=== PATIENT | female | born 1935 | race Caucasian/White ===

== ENCOUNTER 2017-02-06 13:51 | Inpatient (IN) | payer OTHER, BC ==
[~2017-02-06] VITALS: Ht 152.4 cm; Wt 68.4 kg
[~2017-02-06 13:51] MED LIST: ALKA-SELTZER H1 EACH PO; AMLODIPINE BESYL5 MG PO; AMOX TR-K CLV1 EAC4 PO; ASPIR 8181 M1 PO; ATENOLOL50 MG PO; BUSPAR10 MG PO; CALCITRATE + D1 EACH PO; CITRACAL PLUS1 EAC1 PO; COLACE CLEAR50 MG PO; FERROUS SULFAT325 MG PO; LORAZEPAM0.5 MG PO; MILK OF MAGN PO; PRAVACHOL40 MG PO; PRENATAL TABLE1 EAC3 PO; PROVENTIL,2.5 MG/3 M IH; ROBITUSSIN100 MG/5 M PO; SENNA LAX8.6 MG PO; TYLENOL EXTRA500 MG PO; WARFARIN SODIU2.5 MG PO; WARFARIN SODIUM2 MG PO; WARFARIN SODIUM4 MG PO; ZOLOFT100 MG PO
[2017-02-06 15:36] LABS: BASE EXCESS -1.5 mEq/L (-3 to +3); BICARBONATE 22.9 mEq/L (22-26); CARBOXY HGB 2.3 % (0-5); PCO2 37 mm Hg (35-45); PO2 81 mm Hg (80-100)
[2017-02-06 15:37] LABS: COMMENTS - BLOOD GASES A+C=; DEVICE NC; O2 FLOW 3 L/MIN; SITE RR; TOTAL RESP RATE 30 resp/min
[2017-02-06 16:45] LABS: INTER. NORMALIZED RATIO 3.1
[2017-02-06 16:48] LABS: PTT 40.4 SEC (25-37)
[2017-02-06 16:59] LABS: BASOPHIL (%) 0.3 % (0-1); EOSINOPHIL (%) 1.1 % (0-5); EOSINOPHIL COUNT 0.1 K/uL (0-0.3); HEMATOCRIT 39.8 % (36.0-46.0); HEMOGLOBIN 13.2 G/DL (11.9-15.5); IMMATURE GRANULOCYTE (%) 0.5 % (0.0-0.7); LYMPHOCYTE (%) 14.2 % (15-42); LYMPHOCYTE COUNT 1.6 K/uL (1.0-2.8); MCH 32.3 PG (29.0-34.0); MCHC 33.2 G/DL (30.0-36.0); MCV 97.3 FL (83-99); MONOCYTE (%) 3.2 % (3-12); MONOCYTE COUNT 0.4 K/uL (0-0.8); NEUTROPHIL (%) 80.7 % (45-76); NEUTROPHIL COUNT 8.9 K/uL (1.8-6.4); PLATELET COUNT 130 K/uL (156-360); RBC DIS.WIDTH-CV 15.2 % (11.8-14.6); RBC DIS.WIDTH-SD 54.6 % (39-53); RED BLOOD COUNT 4.09 M/uL (3.80-5.20)
[2017-02-06] MEDS ORDERED: SIMETHICONE80 MG PO (17:09)
[2017-02-06 17:10] LABS: ALBUMIN 3.8 g/dL (3.2-4.8); CHLORIDE 107 mEq/L (99-109); POTASSIUM 4.1 mEq/L (3.7-5.4); SODIUM 139 mEq/L (136-147)
[2017-02-06 17:12] LABS: GLUCOSE 164 mg/dL (70-99); TOTAL PROTEIN 8.1 g/dL (6.4-8.3)
[2017-02-06] MEDS ORDERED: VITAMIN D2000 UNIT PO (17:13)
[2017-02-06 17:14] LABS: TOTAL BILIRUBIN 0.8 mg/dL (0.0-1.0)
[2017-02-06 17:16] LABS: ALKALINE PHOSPHATASE 66 IU/L (3-129); CREATININE 1.2 mg/dL (0.6-1.3); GFR ESTIMATE (CALCULATED) 46 mL/min/
[2017-02-06 17:17] LABS: AST (GOT) 85 IU/L (2-34); DIRECT BILIRUBIN 0.4 mg/dL (0.0-0.3); UREA NITROGEN (BUN) 23 mg/dL (9-23)
[2017-02-06 17:19] LABS: ALT (GPT) 67 IU/L (3-49); LIPASE 18 U/L (1.0-51.0); TROP-I INTERPRETATION NEGATIVE; TROPONIN-I 0.01 ng/mL (0.0-0.30)
[2017-02-06] MEDS ORDERED: TYLENOL EXTRA500 MG PO (17:23)
[2017-02-06 22:43] VITALS: BP 109/57
[2017-02-07 02:59] VITALS: BP 109/75
[2017-02-07 06:43] LABS: HEMATOCRIT 34.8 % (36.0-46.0); MCH 31.3 PG (29.0-34.0); MCHC 31.6 G/DL (30.0-36.0); MCV 99.1 FL (83-99); PLATELET COUNT 94 K/uL (156-360); RBC DIS.WIDTH-CV 15.3 % (11.8-14.6); RBC DIS.WIDTH-SD 56.5 % (39-53); RED BLOOD COUNT 3.51 M/uL (3.80-5.20); WHITE BLOOD COUNT 8.4 K/uL (4.1-10.2)
[2017-02-07 06:57] LABS: CHLORIDE 110 MEQ/L (99-109); CREATININE 1.3 MG/DL (0.6-1.3); GFR ESTIMATE (CALCULATED) 42 mL/min/; GLUCOSE 201 mg/dL (70-99); POTASSIUM 3.9 MEQ/L (3.7-5.4); SODIUM 141 MEQ/L (136-147); UREA NITROGEN (BUN) 27 mg/dL (9-23)
[2017-02-07 07:44] VITALS: BP 132/62
[2017-02-07 11:49] VITALS: BP 108/53
[2017-02-07 12:11] LABS: INTER. NORMALIZED RATIO 2.9
[2017-02-07 15:24] VITALS: BP 109/55
[2017-02-07 19:19] VITALS: BP 100/57
[2017-02-08] VITALS (7 sets, daily range): BP systolic 101–166; BP diastolic 55–87
[2017-02-08 07:01] LABS: INTER. NORMALIZED RATIO 3.8
[2017-02-09 06:20] LABS: BASOPHIL (%) 0.2 % (0-1); EOSINOPHIL (%) 0 % (0-5); HEMOGLOBIN 11.1 G/DL (11.9-15.5); IMMATURE GRANULOCYTE (%) 0.9 % (0.0-0.7); LYMPHOCYTE (%) 13.1 % (15-42); LYMPHOCYTE COUNT 1.7 K/uL (1.0-2.8); MCH 31.8 PG (29.0-34.0); MCHC 31.7 G/DL (30.0-36.0); MCV 100.3 FL (83-99); MONOCYTE (%) 4.1 % (3-12); MONOCYTE COUNT 0.5 K/uL (0-0.8); NEUTROPHIL (%) 81.7 % (45-76); NEUTROPHIL COUNT 10.4 K/uL (1.8-6.4); RBC DIS.WIDTH-CV 15.9 % (11.8-14.6); RBC DIS.WIDTH-SD 58.5 % (39-53); RED BLOOD COUNT 3.49 M/uL (3.80-5.20); WHITE BLOOD COUNT 12.8 K/uL (4.1-10.2)
[2017-02-09 06:28] LABS: PLATELET COUNT 125 K/uL (156-360)
[2017-02-09 06:56] LABS: INTER. NORMALIZED RATIO 4.8
[2017-02-09 07:15] VITALS: BP 126/95
[2017-02-09 07:41] LABS: ALBUMIN 3.2 G/DL (3.2-4.8); ALKALINE PHOSPHATASE 37 IU/L (3-129); ALT (GPT) 65 IU/L (3-49); AST (GOT) 64 IU/L (2-34); CHLORIDE 114 MEQ/L (99-109); CREATININE 1.3 MG/DL (0.6-1.3); GFR ESTIMATE (CALCULATED) 42 mL/min/; GLUCOSE 115 mg/dL (70-99); POTASSIUM 3.1 MEQ/L (3.7-5.4); SODIUM 147 MEQ/L (136-147); TOTAL BILIRUBIN 0.6 MG/DL (0.0-1.0); TOTAL PROTEIN 6.2 G/DL (6.4-8.3); UREA NITROGEN (BUN) 35 mg/dL (9-23)
[2017-02-09 08:28] VITALS: BP 128/82
[2017-02-09 11:14] VITALS: BP 114/62
[2017-02-09 16:08] VITALS: BP 145/82
[2017-02-09 19:38] VITALS: BP 130/84
[2017-02-09 23:54] VITALS: BP 174/82
[2017-02-10 03:29] VITALS: BP 142/84
[2017-02-10 07:54] LABS: ALBUMIN 3.4 G/DL (3.2-4.8); ALKALINE PHOSPHATASE 41 IU/L (3-129); ALT (GPT) 77 IU/L (3-49); AST (GOT) 87 IU/L (2-34); CHLORIDE 118 MEQ/L (99-109); CREATININE 1.2 MG/DL (0.6-1.3); GFR ESTIMATE (CALCULATED) 46 mL/min/; POTASSIUM 3.1 MEQ/L (3.7-5.4); SODIUM 148 MEQ/L (136-147); TOTAL BILIRUBIN 0.6 MG/DL (0.0-1.0); TOTAL PROTEIN 6.1 G/DL (6.4-8.3); UREA NITROGEN (BUN) 32 mg/dL (9-23)
[2017-02-10 07:58] LABS: GLUCOSE 82 mg/dL (70-99)
[2017-02-10 07:59] LABS: C DIFF TOXIN NEGATIVE (NEGATIVE)
[2017-02-10 08:00] VITALS: BP 139/81
[2017-02-10 08:10] LABS: INTER. NORMALIZED RATIO 5.8
[2017-02-10 08:23] LABS: BASOPHIL (%) 0.2 % (0-1); EOSINOPHIL (%) 0.2 % (0-5); HEMATOCRIT 34.9 % (36.0-46.0); HEMOGLOBIN 11.4 G/DL (11.9-15.5); IMMATURE GRANULOCYTE (%) 1.1 % (0.0-0.7); LYMPHOCYTE (%) 24.1 % (15-42); LYMPHOCYTE COUNT 2.9 K/uL (1.0-2.8); MCH 32.7 PG (29.0-34.0); MCHC 32.7 G/DL (30.0-36.0); MONOCYTE (%) 4.7 % (3-12); MONOCYTE COUNT 0.6 K/uL (0-0.8); NEUTROPHIL (%) 69.7 % (45-76); NEUTROPHIL COUNT 8.3 K/uL (1.8-6.4); NRBC (%) 0.3 /100 WBC (0-0); PLATELET COUNT 121 K/uL (156-360); RBC DIS.WIDTH-SD 58.9 % (39-53); RED BLOOD COUNT 3.49 M/uL (3.80-5.20); WHITE BLOOD COUNT 11.9 K/uL (4.1-10.2)
[2017-02-10 09:51] LABS: RETIC HGB EQUIVALENT 32.5 (28-36); RETICULOCYTE COUNT 1.8 % (0.5-1.8)
[2017-02-10 10:54] LABS: IRON 65 MCG/DL (35-150); MAGNESIUM 1.9 mg/dl (1.3-2.7); TRANSFERRIN (TIBC) 169.9 mg/dL (215-380); TRANSFERRIN SATUR. 38 % (20-55)
[2017-02-10 11:11] LABS: FERRITIN 348 NG/ML (10-291)
[2017-02-10 11:20] LABS: FOLIC ACID (FOLATE) > 22.0 NG/ML (5.0-22.0)
[2017-02-10 12:00] VITALS: BP 136/89
[2017-02-10 16:00] VITALS: BP 178/77
[2017-02-10 19:17] LABS: COLOR YELLOW ((YELLOW))
[2017-02-10 19:18] LABS: APPEARANCE SL.HAZY ((CLEAR)); BILIRUBIN NEGATIVE; BLOOD LARGE; GLUCOSE (STRIP) NEGATIVE; KETONES NEGATIVE; LEUKOCYTES MODERATE; NITRITE NEGATIVE; PROTEIN (STRIP) 100; UROBILINOGEN 0.2 MG/DL (0.2-1.0)
[2017-02-10 19:54] LABS: EPITHELIAL CELLS NONE SEEN /HPF; MUCUS NONE SEEN /LPF
[2017-02-10 19:56] LABS: BACTERIA NONE SEEN /HPF; RED BLOOD CELLS TNTC /HPF (0-5); UCUL ADDED? YES
[2017-02-10 20:28] VITALS: BP 166/90
[2017-02-10 23:39] VITALS: BP 156/90
[2017-02-11 03:55] VITALS: BP 165/85
[2017-02-11 05:19] LABS: BASOPHIL (%) 0.1 % (0-1); EOSINOPHIL (%) 0.2 % (0-5); HEMATOCRIT 32.9 % (36.0-46.0); HEMOGLOBIN 10.5 G/DL (11.9-15.5); IMMATURE GRANULOCYTE (%) 1.8 % (0.0-0.7); LYMPHOCYTE (%) 17.9 % (15-42); LYMPHOCYTE COUNT 1.9 K/uL (1.0-2.8); MCH 31.4 PG (29.0-34.0); MCHC 31.9 G/DL (30.0-36.0); MCV 98.5 FL (83-99); MONOCYTE (%) 3.2 % (3-12); MONOCYTE COUNT 0.3 K/uL (0-0.8); NEUTROPHIL (%) 76.8 % (45-76); NEUTROPHIL COUNT 8.3 K/uL (1.8-6.4); NRBC (%) 0.3 /100 WBC (0-0); PLATELET COUNT 121 K/uL (156-360); RBC DIS.WIDTH-CV 15.6 % (11.8-14.6); RBC DIS.WIDTH-SD 56.7 % (39-53); RED BLOOD COUNT 3.34 M/uL (3.80-5.20); WHITE BLOOD COUNT 10.7 K/uL (4.1-10.2)
[2017-02-11 05:54] LABS: ALBUMIN 3.4 G/DL (3.2-4.8); ALKALINE PHOSPHATASE 41 IU/L (3-129); ALT (GPT) 99 IU/L (3-49); AST (GOT) 83 IU/L (2-34); CHLORIDE 113 MEQ/L (99-109); CREATININE 1.1 MG/DL (0.6-1.3); GFR ESTIMATE (CALCULATED) 50 mL/min/; GLUCOSE 125 mg/dL (70-99); POTASSIUM 3.8 MEQ/L (3.7-5.4); SODIUM 141 MEQ/L (136-147); TOTAL BILIRUBIN 0.5 MG/DL (0.0-1.0); TOTAL PROTEIN 6.3 G/DL (6.4-8.3); UREA NITROGEN (BUN) 23 mg/dL (9-23)
[2017-02-11 08:00] VITALS: BP 168/78
[2017-02-11 11:30] VITALS: BP 162/48
[2017-02-11 15:06] LABS: INTER. NORMALIZED RATIO 4.7
[2017-02-11 16:00] VITALS: BP 148/82
[2017-02-11 20:07] VITALS: BP 122/72
[2017-02-11 23:57] VITALS: BP 112/64
[2017-02-12 03:52] VITALS: BP 128/64
[2017-02-12 05:31] LABS: BASOPHIL (%) 0.2 % (0-1); EOSINOPHIL (%) 3.1 % (0-5); EOSINOPHIL COUNT 0.4 K/uL (0-0.3); HEMATOCRIT 31.7 % (36.0-46.0); HEMOGLOBIN 10.4 G/DL (11.9-15.5); IMMATURE GRANULOCYTE (%) 1.1 % (0.0-0.7); LYMPHOCYTE (%) 22.1 % (15-42); LYMPHOCYTE COUNT 3.1 K/uL (1.0-2.8); MCH 32.1 PG (29.0-34.0); MCHC 32.8 G/DL (30.0-36.0); MCV 97.8 FL (83-99); MONOCYTE (%) 3.8 % (3-12); MONOCYTE COUNT 0.5 K/uL (0-0.8); NEUTROPHIL (%) 69.7 % (45-76); NEUTROPHIL COUNT 9.7 K/uL (1.8-6.4); NRBC (%) 0.2 /100 WBC (0-0); PLATELET COUNT 122 K/uL (156-360); RBC DIS.WIDTH-CV 15.5 % (11.8-14.6); RBC DIS.WIDTH-SD 55.5 % (39-53); RED BLOOD COUNT 3.24 M/uL (3.80-5.20); WHITE BLOOD COUNT 13.8 K/uL (4.1-10.2)
[2017-02-12 06:14] LABS: ALBUMIN 3.3 G/DL (3.2-4.8); ALKALINE PHOSPHATASE 44 IU/L (3-129); ALT (GPT) 77 IU/L (3-49); AST (GOT) 44 IU/L (2-34); CHLORIDE 111 MEQ/L (99-109); CREATININE 0.9 MG/DL (0.6-1.3); GFR ESTIMATE (CALCULATED) > 59 mL/min/; GLUCOSE 101 mg/dL (70-99); POTASSIUM 3.4 MEQ/L (3.7-5.4); SODIUM 141 MEQ/L (136-147); TOTAL BILIRUBIN 0.6 MG/DL (0.0-1.0); TOTAL PROTEIN 6.1 G/DL (6.4-8.3); UREA NITROGEN (BUN) 19 mg/dL (9-23)
[2017-02-12 07:06] VITALS: BP 151/76
[2017-02-12 10:58] VITALS: BP 173/87
[2017-02-12 14:57] VITALS: BP 169/88
[2017-02-12 19:19] VITALS: BP 122/72
[2017-02-12 23:57] VITALS: BP 146/71
[2017-02-13 03:49] VITALS: BP 131/60
[2017-02-13 06:47] LABS: BASOPHIL (%) 0.1 % (0-1); EOSINOPHIL (%) 0 % (0-5); HEMOGLOBIN 10.3 G/DL (11.9-15.5); IMMATURE GRANULOCYTE (%) 1.9 % (0.0-0.7); LYMPHOCYTE (%) 7.7 % (15-42); LYMPHOCYTE COUNT 0.9 K/uL (1.0-2.8); MCH 31.9 PG (29.0-34.0); MCHC 32.2 G/DL (30.0-36.0); MCV 99.1 FL (83-99); MONOCYTE (%) 1.5 % (3-12); MONOCYTE COUNT 0.2 K/uL (0-0.8); NEUTROPHIL (%) 88.8 % (45-76); NEUTROPHIL COUNT 10.3 K/uL (1.8-6.4); NRBC (%) 0.2 /100 WBC (0-0); PLATELET COUNT 133 K/uL (156-360); RBC DIS.WIDTH-CV 15.8 % (11.8-14.6); RBC DIS.WIDTH-SD 56.6 % (39-53); RED BLOOD COUNT 3.23 M/uL (3.80-5.20); WHITE BLOOD COUNT 11.6 K/uL (4.1-10.2)
[2017-02-13 06:53] LABS: INTER. NORMALIZED RATIO 2.6
[2017-02-13 07:02] VITALS: BP 141/77
[2017-02-13 07:02] LABS: ALBUMIN 3.3 G/DL (3.2-4.8); ALKALINE PHOSPHATASE 47 IU/L (3-129); ALT (GPT) 70 IU/L (3-49); AST (GOT) 38 IU/L (2-34); CHLORIDE 111 MEQ/L (99-109); CREATININE 0.9 MG/DL (0.6-1.3); GFR ESTIMATE (CALCULATED) > 59 mL/min/; SODIUM 140 MEQ/L (136-147); TOTAL PROTEIN 6.3 G/DL (6.4-8.3); UREA NITROGEN (BUN) 19 mg/dL (9-23)
[2017-02-13 07:06] LABS: GLUCOSE 163 mg/dL (70-99); POTASSIUM 4.6 MEQ/L (3.7-5.4); TOTAL BILIRUBIN 0.8 MG/DL (0.0-1.0)
[2017-02-13] MEDS ORDERED: DUONEB 2.5-0.5 M3 ML AEROSOL (12:30)
[2017-02-13] MEDS ORDERED: DOXYCYCLINE HY100 M3 PO (12:30)
[2017-02-13] MEDS ORDERED: LOPRESSOR50 MG PO (12:31)
[2017-02-13] MEDS ORDERED: CARDIZEM CD120 M1 PO (12:32)
[2017-02-13] MEDS ORDERED: PREDNISONE10 MG PO (12:33)
[2017-02-13] MEDS ORDERED: ADVAIR HFA120 INHALA IH (12:33)
== END 2017-02-13 18:04 | DRG 193 ==
LOC: EME 13:51 → EDOF 20:58 → 5SOUTH 20:58 → 2EAST 20:58 → ENRESERV 21:02 → 2EAST 22:33 → ENRESERV 02-08 17:10 → 5SOUTH 02-08 18:11
PROVIDERS: Emergency Medicine; Hospitalist
DX: J15.9 Unspecified bacterial pneumonia (principal); J96.01 Acute respiratory failure with hypoxia; J45.909 Unspecified asthma, uncomplicated; I48.2 Chronic atrial fibrillation; I11.0 Hypertensive heart disease with heart failure; I50.9 Heart failure, unspecified; E87.0 Hyperosmolality and hypernatremia; E87.6 Hypokalemia; D69.6 Thrombocytopenia, unspecified; D64.9 Anemia, unspecified; I69.354 Hemiplegia and hemiparesis following cerebral infarction affecting left non-dominant side; I69.392 Facial weakness following cerebral infarction; I69.320 Aphasia following cerebral infarction; I69.321 Dysphasia following cerebral infarction; K58.0 Irritable bowel syndrome with diarrhea; K21.9 Gastro-esophageal reflux disease without esophagitis; M81.0 Age-related osteoporosis without current pathological fracture; I34.8 Other nonrheumatic mitral valve disorders; R79.1 Abnormal coagulation profile; E66.9 Obesity, unspecified; Z68.29 Body mass index [BMI] 29.0-29.9, adult; E78.00 Pure hypercholesterolemia, unspecified; G89.29 Other chronic pain; F32.9 Major depressive disorder, single episode, unspecified; F41.9 Anxiety disorder, unspecified; M19.90 Unspecified osteoarthritis, unspecified site; Y95 Nosocomial condition; Z95.2 Presence of prosthetic heart valve; Z87.440 Personal history of urinary (tract) infections; Z96.652 Presence of left artificial knee joint; Z79.82 Long term (current) use of aspirin; Z79.01 Long term (current) use of anticoagulants
CPT/HCPCS: 36600; 71010; 71045; 71046; 71250; 80048; 80053; 81003; 82248; 82607; 82728; 82746; 82803; 83540; 83605; 83690; 83735; 84466; 84484; 85025; 85027; 85046; 85610; 85730; 87040; 87086; 87493; 92610 GN; 93005; 94640; 94640 76; 94760; 94799; 99202; 99281; 99285; J0696; J2405; J2543; J2920; J2930; J3370; J7030; J7050; J7070; J7512

== ENCOUNTER 2017-02-22 05:33 | Emergency (ER) | payer OTHER ==
[~2017-02-22] VITALS: Ht 160 cm; Wt 73.6 kg
[~2017-02-22 05:33] MED LIST changes: +ADVAIR HFA120 INHALA IH; +CARDIZEM CD120 M1 PO; +DOXYCYCLINE HY100 M3 PO; +DUONEB 2.5-0.5 M3 ML AEROSOL; +LOPRESSOR50 MG PO; +PREDNISONE10 MG PO; +SIMETHICONE80 MG PO; +VITAMIN D2000 UNIT PO
[2017-02-22 08:23] LABS: BASOPHIL (%) 0.1 % (0-1); EOSINOPHIL (%) 1.2 % (0-5); EOSINOPHIL COUNT 0.2 K/uL (0-0.3); HEMATOCRIT 37.4 % (36.0-46.0); HEMOGLOBIN 12.1 G/DL (11.9-15.5); IMMATURE GRANULOCYTE (%) 0.9 % (0.0-0.7); LYMPHOCYTE (%) 17.2 % (15-42); LYMPHOCYTE COUNT 2.8 K/uL (1.0-2.8); MCH 32.4 PG (29.0-34.0); MCHC 32.4 G/DL (30.0-36.0); MCV 100.3 FL (83-99); MONOCYTE (%) 3.4 % (3-12); MONOCYTE COUNT 0.6 K/uL (0-0.8); NEUTROPHIL (%) 77.2 % (45-76); NEUTROPHIL COUNT 12.7 K/uL (1.8-6.4); PLATELET COUNT 160 K/uL (156-360); RBC DIS.WIDTH-SD 58.4 % (39-53); RED BLOOD COUNT 3.73 M/uL (3.80-5.20); WHITE BLOOD COUNT 16.5 K/uL (4.1-10.2)
[2017-02-22 08:28] LABS: INTER. NORMALIZED RATIO 2.9
[2017-02-22 08:32] LABS: CHLORIDE 99 mEq/L (99-109); POTASSIUM 4.5 mEq/L (3.7-5.4); SODIUM 141 mEq/L (136-147)
[2017-02-22 08:33] LABS: GLUCOSE 116 mg/dL (70-99)
[2017-02-22 08:37] LABS: CREATININE 1.1 mg/dL (0.6-1.3); GFR ESTIMATE (CALCULATED) 50 mL/min/
[2017-02-22 08:38] LABS: UREA NITROGEN (BUN) 26 mg/dL (9-23)
[2017-02-22] MEDS ORDERED: PERCOCET 5/31 TABLET PO (10:32)
[2017-02-22 11:40] VITALS: BP 112/74
== END 2017-02-22 11:41 ==
LOC: EME → EDBD 05:33 → EME 05:33
PROVIDERS: Emergency Medicine
PROC: 2W3LX1Z Immobilization of Right Lower Extremity using Splint (ICD-10-PCS; principal; 2017-02-22)
DX: S72.401A Unspecified fracture of lower end of right femur, initial encounter for closed fracture (principal); W06.XXXA Fall from bed, initial encounter; Y92.122 Bedroom in nursing home as the place of occurrence of the external cause; K21.9 Gastro-esophageal reflux disease without esophagitis; Z86.73 Personal history of transient ischemic attack (TIA), and cerebral infarction without residual deficits; F41.9 Anxiety disorder, unspecified; F32.9 Major depressive disorder, single episode, unspecified; Z79.01 Long term (current) use of anticoagulants; Z79.82 Long term (current) use of aspirin; Z88.5 Allergy status to narcotic agent; Z88.1 Allergy status to other antibiotic agents
CPT/HCPCS: 70450; 71045; 73502; 73552; 73560; 73700; 80048; 85025; 85610; 99281; 99285

== ENCOUNTER 2017-03-24 08:05 | Inpatient (IN) | payer OTHER ==
[2017-03-24] VITALS (10 sets, daily range): BP systolic 80–116; BP diastolic 47–84
[~2017-03-24] VITALS: Ht 157.5 cm; Wt 78.0 kg
[~2017-03-24 08:05] MED LIST changes: +PERCOCET 5/31 TABLET PO
[2017-03-24 08:43] LABS: BASOPHIL (%) 0.4 % (0-1); BASOPHIL COUNT 0.1 K/uL (0-0.1); EOSINOPHIL (%) 1.4 % (0-5); EOSINOPHIL COUNT 0.3 K/uL (0-0.3); HEMATOCRIT 36.2 % (36.0-46.0); HEMOGLOBIN 11.6 G/DL (11.9-15.5); IMMATURE GRANULOCYTE (%) 0.6 % (0.0-0.7); LYMPHOCYTE (%) 19.9 % (15-42); LYMPHOCYTE COUNT 4.4 K/uL (1.0-2.8); MCH 30.8 PG (29.0-34.0); MONOCYTE (%) 3.9 % (3-12); MONOCYTE COUNT 0.9 K/uL (0-0.8); NEUTROPHIL (%) 73.8 % (45-76); NEUTROPHIL COUNT 16.4 K/uL (1.8-6.4); PLATELET COUNT 236 K/uL (156-360); RBC DIS.WIDTH-CV 18.1 % (11.8-14.6); RBC DIS.WIDTH-SD 63.1 % (39-53); RED BLOOD COUNT 3.77 M/uL (3.80-5.20); WHITE BLOOD COUNT 22.2 K/uL (4.1-10.2)
[2017-03-24 08:50] LABS: INTER. NORMALIZED RATIO 1.8
[2017-03-24 08:58] LABS: CARBON DIOXIDE (BICARBONATE) 25.4 MEQ/L (20-31)
[2017-03-24 09:07] LABS: TROP-I INTERPRETATION NEGATIVE; TROPONIN-I < 0.01 ng/mL (0.0-0.30)
[2017-03-24 10:23] LABS: APPEARANCE CLOUDY ((CLEAR)); BILIRUBIN NEGATIVE; BLOOD NEGATIVE; COLOR YELLOW ((YELLOW)); GLUCOSE (STRIP) NEGATIVE; KETONES NEGATIVE; LEUKOCYTES MODERATE; NITRITE NEGATIVE; PROTEIN (STRIP) NEGATIVE; SPECIFIC GRAVITY 1.032 (1.000-1.030); UROBILINOGEN 0.2 MG/DL (0.2-1.0)
[2017-03-24 10:39] LABS: EPITHELIAL CELLS 3+ /HPF; RED BLOOD CELLS NONE SEEN /HPF (0-5); WHITE BLOOD CELLS 15-20 /HPF (0-5)
[2017-03-24 10:40] LABS: BACTERIA 1+ /HPF; MUCUS TRACE /LPF; UCUL ADDED? YES
[2017-03-24 11:18] LABS: BICARBONATE 22.2 mEq/L (22-26); CARBOXY HGB 2.6 % (0-5); COMMENTS - BLOOD GASES A+C+; DEVICE NC; METHEMOGLOBIN 1.1 % (0-1.5); O2 FLOW 4 L/MIN; PCO2 35 mm Hg (35-45); PO2 121 mm Hg (80-100); SITE RR; pH 7.41 (7.35-7.45)
[2017-03-24] MEDS ORDERED: PROZAC20 MG PO (12:25)
[2017-03-24] MEDS ORDERED: WARFARIN SODIUM2 MG PO (12:30)
[2017-03-24] MEDS ORDERED: RANITIDINE HCL300 MG PO (12:33)
[2017-03-24] MEDS ORDERED: ALKA-SELTZER H1 EACH PO (12:34)
[2017-03-24] MEDS ORDERED: TYLENOL EXTRA500 MG PO (12:36)
[2017-03-25] VITALS (22 sets, daily range): BP systolic 76–185; BP diastolic 35–139
[2017-03-25 13:23] LABS: BASOPHIL (%) 0.5 % (0-1); BASOPHIL COUNT 0.1 K/uL (0-0.1); EOSINOPHIL (%) 4.5 % (0-5); EOSINOPHIL COUNT 0.5 K/uL (0-0.3); HEMATOCRIT 30.1 % (36.0-46.0); IMMATURE GRANULOCYTE (%) 0.8 % (0.0-0.7); LYMPHOCYTE COUNT 2.3 K/uL (1.0-2.8); MCH 30.4 PG (29.0-34.0); MCHC 29.9 G/DL (30.0-36.0); MONOCYTE (%) 5.6 % (3-12); MONOCYTE COUNT 0.7 K/uL (0-0.8); NEUTROPHIL (%) 69.6 % (45-76); NEUTROPHIL COUNT 8.3 K/uL (1.8-6.4); PLATELET COUNT 199 K/uL (156-360); RBC DIS.WIDTH-CV 18.5 % (11.8-14.6); RBC DIS.WIDTH-SD 68.4 % (39-53); WHITE BLOOD COUNT 11.9 K/uL (4.1-10.2)
[2017-03-25 13:33] LABS: INTER. NORMALIZED RATIO 1.9
[2017-03-25 13:38] LABS: MCV 101.7 FL (83-99); RED BLOOD COUNT 2.96 M/uL (3.80-5.20)
[2017-03-25 14:06] LABS: ALBUMIN 2.2 G/DL (3.2-4.8); ALKALINE PHOSPHATASE 155 IU/L (3-129); ALT (GPT) 36 IU/L (3-49); AST (GOT) 40 IU/L (2-34); CHLORIDE 110 MEQ/L (99-109); GFR ESTIMATE (CALCULATED) 56 mL/min/; GLUCOSE 154 mg/dL (70-99); MAGNESIUM 1.5 mg/dl (1.3-2.7); PHOSPHORUS 3.4 mg/dL (2.5-4.9); POTASSIUM 3.4 MEQ/L (3.7-5.4); SODIUM 138 MEQ/L (136-147); TOTAL BILIRUBIN 0.7 MG/DL (0.0-1.0); TOTAL PROTEIN 5.8 G/DL (6.4-8.3); UREA NITROGEN (BUN) 20 mg/dL (9-23)
[2017-03-25 14:08] LABS: HIGH-SENS C-REACTIVE PROTEIN > 8.00 MG/DL (0.02-0.20)
[2017-03-25 14:26] LABS: C DIFF TOXIN NEGATIVE (NEGATIVE)
[2017-03-26 03:57] VITALS: BP 122/75
[2017-03-26 06:41] LABS: PTT 70.7 SEC (25-37)
[2017-03-26 07:10] LABS: CHLORIDE 112 MEQ/L (99-109); CREATININE 1.1 MG/DL (0.6-1.3); GFR ESTIMATE (CALCULATED) 50 mL/min/; GLUCOSE 153 mg/dL (70-99); POTASSIUM 3.9 MEQ/L (3.7-5.4); SODIUM 139 MEQ/L (136-147); UREA NITROGEN (BUN) 19 mg/dL (9-23)
[2017-03-26 08:44] LABS: HEMATOCRIT 31.3 % (36.0-46.0); HEMOGLOBIN 9.4 G/DL (11.9-15.5); MCH 30.1 PG (29.0-34.0); MCV 100.3 FL (83-99); PLATELET COUNT 182 K/uL (156-360); RBC DIS.WIDTH-CV 18.3 % (11.8-14.6); RBC DIS.WIDTH-SD 67.2 % (39-53); RED BLOOD COUNT 3.12 M/uL (3.80-5.20); WHITE BLOOD COUNT 11.8 K/uL (4.1-10.2)
[2017-03-26 09:08] VITALS: BP 140/73
[2017-03-26 11:43] VITALS: BP 131/73
[2017-03-26 16:08] VITALS: BP 132/53
[2017-03-26 19:29] VITALS: BP 133/72
[2017-03-26 23:00] VITALS: BP 114/72
[2017-03-27 03:50] VITALS: BP 110/69
[2017-03-27 06:38] LABS: INTER. NORMALIZED RATIO 1.8
[2017-03-27 06:41] LABS: PTT 86.6 SEC (25-37)
[2017-03-27 06:48] LABS: HEMATOCRIT 30.4 % (36.0-46.0); HEMOGLOBIN 9.2 G/DL (11.9-15.5); MCH 30.3 PG (29.0-34.0); MCHC 30.3 G/DL (30.0-36.0); PLATELET COUNT 191 K/uL (156-360); RBC DIS.WIDTH-CV 18.6 % (11.8-14.6); RED BLOOD COUNT 3.04 M/uL (3.80-5.20); WHITE BLOOD COUNT 10.5 K/uL (4.1-10.2)
[2017-03-27 07:04] LABS: CHLORIDE 110 MEQ/L (99-109); CREATININE 1.3 MG/DL (0.6-1.3); GFR ESTIMATE (CALCULATED) 42 mL/min/; GLUCOSE 137 mg/dL (70-99); POTASSIUM 3.6 MEQ/L (3.7-5.4); SODIUM 139 MEQ/L (136-147); UREA NITROGEN (BUN) 21 mg/dL (9-23)
[2017-03-27 08:00] VITALS: BP 137/71
[2017-03-27 11:16] LABS: BASE EXCESS -4.7 mEq/L (-3 to +3); BICARBONATE 20.3 mEq/L (22-26); CARBOXY HGB 2.6 % (0-5); METHEMOGLOBIN 1.4 % (0-1.5); PCO2 36 mm Hg (35-45); PO2 100 mm Hg (80-100); pH 7.36 (7.35-7.45)
[2017-03-27 11:17] LABS: COMMENTS - BLOOD GASES A+C+; DEVICE NC; FI02 97 %; O2 FLOW 2 L/MIN; SITE LR; TOTAL RESP RATE 26 resp/min
[2017-03-27 12:00] VITALS: BP 132/67
[2017-03-27 20:07] VITALS: BP 114/66
[2017-03-27 23:30] VITALS: BP 122/61
[2017-03-28 04:12] VITALS: BP 110/64
[2017-03-28 06:20] LABS: HEMATOCRIT 29.6 % (36.0-46.0); MCH 30.4 PG (29.0-34.0); MCHC 30.4 G/DL (30.0-36.0); PLATELET COUNT 163 K/uL (156-360); RBC DIS.WIDTH-CV 18.3 % (11.8-14.6); RBC DIS.WIDTH-SD 67.6 % (39-53); RED BLOOD COUNT 2.96 M/uL (3.80-5.20); WHITE BLOOD COUNT 9.9 K/uL (4.1-10.2)
[2017-03-28 06:39] LABS: CHLORIDE 110 MEQ/L (99-109); CREATININE 1.6 MG/DL (0.6-1.3); GFR ESTIMATE (CALCULATED) 33 mL/min/; GLUCOSE 137 mg/dL (70-99); POTASSIUM 3.3 MEQ/L (3.7-5.4); SODIUM 143 MEQ/L (136-147); UREA NITROGEN (BUN) 23 mg/dL (9-23)
[2017-03-28 06:40] LABS: INTER. NORMALIZED RATIO 1.8
[2017-03-28 06:43] LABS: PTT 71.6 SEC (25-37)
[2017-03-28 07:52] VITALS: BP 156/85
[2017-03-28 07:52] LABS: MAGNESIUM 1.7 mg/dl (1.3-2.7)
[2017-03-28 12:01] VITALS: BP 134/79
[2017-03-28 16:44] VITALS: BP 132/71
[2017-03-28 19:48] VITALS: BP 126/61
[2017-03-28 23:56] VITALS: BP 113/56
[2017-03-29 04:13] VITALS: BP 131/84
[2017-03-29 06:51] LABS: HEMATOCRIT 30.2 % (36.0-46.0); HEMOGLOBIN 9.2 G/DL (11.9-15.5); MCH 30.9 PG (29.0-34.0); MCHC 30.5 G/DL (30.0-36.0); MCV 101.3 FL (83-99); PLATELET COUNT 166 K/uL (156-360); RBC DIS.WIDTH-CV 18.5 % (11.8-14.6); RBC DIS.WIDTH-SD 67.3 % (39-53); RED BLOOD COUNT 2.98 M/uL (3.80-5.20); WHITE BLOOD COUNT 11.2 K/uL (4.1-10.2)
[2017-03-29 06:53] LABS: INTER. NORMALIZED RATIO 1.7
[2017-03-29 06:56] LABS: PTT 95.7 SEC (25-37)
[2017-03-29 07:15] LABS: CHLORIDE 113 MEQ/L (99-109); CREATININE 1.8 MG/DL (0.6-1.3); GFR ESTIMATE (CALCULATED) 29 mL/min/; GLUCOSE 158 mg/dL (70-99); SODIUM 143 MEQ/L (136-147); UREA NITROGEN (BUN) 29 mg/dL (9-23)
[2017-03-29 07:16] LABS: POTASSIUM 4.1 MEQ/L (3.7-5.4)
[2017-03-29 07:54] VITALS: BP 132/63
[2017-03-29 12:01] VITALS: BP 154/93
[2017-03-29 16:11] VITALS: BP 121/68
[2017-03-29 19:40] VITALS: BP 135/88
[2017-03-29 23:32] VITALS: BP 125/53
[2017-03-30 03:56] VITALS: BP 109/59
[2017-03-30 06:03] LABS: HEMATOCRIT 29.9 % (36.0-46.0); HEMOGLOBIN 8.9 G/DL (11.9-15.5); MCH 30.6 PG (29.0-34.0); MCHC 29.8 G/DL (30.0-36.0); MCV 102.7 FL (83-99); PLATELET COUNT 187 K/uL (156-360); RBC DIS.WIDTH-CV 18.9 % (11.8-14.6); RBC DIS.WIDTH-SD 71.1 % (39-53); RED BLOOD COUNT 2.91 M/uL (3.80-5.20); WHITE BLOOD COUNT 14.4 K/uL (4.1-10.2)
[2017-03-30 06:17] LABS: INTER. NORMALIZED RATIO 1.8
[2017-03-30 06:20] LABS: PTT 77.8 SEC (25-37)
[2017-03-30 08:16] VITALS: BP 126/70
[2017-03-30 11:25] VITALS: BP 135/94
[2017-03-30 15:29] VITALS: BP 134/63
[2017-03-30 19:56] VITALS: BP 132/79
[2017-03-30 23:47] VITALS: BP 146/65
[2017-03-31] VITALS (7 sets, daily range): BP systolic 122–148; BP diastolic 62–88
[2017-03-31 06:15] LABS: HEMATOCRIT 31.8 % (36.0-46.0); HEMOGLOBIN 9.4 G/DL (11.9-15.5); MCH 30.3 PG (29.0-34.0); MCHC 29.6 G/DL (30.0-36.0); MCV 102.6 FL (83-99); NRBC (%) 0.2 /100 WBC (0-0); PLATELET COUNT 232 K/uL (156-360); RBC DIS.WIDTH-CV 18.7 % (11.8-14.6); RBC DIS.WIDTH-SD 70.4 % (39-53); WHITE BLOOD COUNT 18.3 K/uL (4.1-10.2)
[2017-03-31 06:39] LABS: INTER. NORMALIZED RATIO 1.8
[2017-03-31 07:06] LABS: CHLORIDE 113 MEQ/L (99-109); CREATININE 1.7 MG/DL (0.6-1.3); GFR ESTIMATE (CALCULATED) 31 mL/min/; POTASSIUM 4.1 MEQ/L (3.7-5.4); SODIUM 144 MEQ/L (136-147); UREA NITROGEN (BUN) 40 mg/dL (9-23)
[2017-03-31 07:12] LABS: GLUCOSE 116 mg/dL (70-99)
[2017-03-31 11:31] LABS: BASE EXCESS -4.8 mEq/L (-3 to +3); BICARBONATE 20.5 mEq/L (22-26); CARBOXY HGB 2.8 % (0-5); METHEMOGLOBIN 1.8 % (0-1.5); PCO2 38 mm Hg (35-45); PO2 76 mm Hg (80-100); pH 7.34 (7.35-7.45)
[2017-03-31 11:32] LABS: COMMENTS - BLOOD GASES A+C+; DEVICE NC; O2 FLOW 4 L/MIN; SITE RR; TOTAL RESP RATE 34 resp/min
[2017-04-01 00:02] VITALS: BP 125/67
[2017-04-01 04:23] VITALS: BP 123/61
[2017-04-01 06:52] LABS: HEMATOCRIT 30.9 % (36.0-46.0); HEMOGLOBIN 9.4 G/DL (11.9-15.5); MCH 31.3 PG (29.0-34.0); MCHC 30.4 G/DL (30.0-36.0); NRBC (%) 0.3 /100 WBC (0-0); RBC DIS.WIDTH-CV 19.2 % (11.8-14.6); RBC DIS.WIDTH-SD 71.6 % (39-53); WHITE BLOOD COUNT 15.7 K/uL (4.1-10.2)
[2017-04-01 07:26] VITALS: BP 132/60
[2017-04-01 07:28] LABS: PLAT.SUFFICIENCY ADEQUATE; PLATELET COUNT 194 K/uL (156-360)
[2017-04-01 11:52] VITALS: BP 1138/62
[2017-04-01] MEDS ORDERED: SERTRALINE HCL100 MG PO (13:28)
[2017-04-01] MEDS ORDERED: PREDNISONE10 MG PO (13:30)
== END 2017-04-01 15:50 | DRG 871 ==
LOC: EME 08:05 → ENRESERV 11:09 → 4WEST 13:06 → EDOF 13:06 → ENRESERV 13:08 → 4WEST 14:37 → ENRESERV 03-25 16:20 → 5SOUTH 03-25 21:43 → ENPENDDIS 04-01 13:51 → 5SOUTH 04-01 15:50
PROVIDERS: Emergency Medicine; Hospitalist; Internal Medicine; Internal Medicine Critical Care Medicine
DX: A41.9 Sepsis, unspecified organism (principal); R65.21 Severe sepsis with septic shock; J96.01 Acute respiratory failure with hypoxia; N17.9 Acute kidney failure, unspecified; T50.2X5A Adverse effect of carbonic-anhydrase inhibitors, benzothiadiazides and other diuretics, initial encounter; J15.9 Unspecified bacterial pneumonia; J69.0 Pneumonitis due to inhalation of food and vomit; I48.2 Chronic atrial fibrillation; E83.42 Hypomagnesemia; E87.6 Hypokalemia; Z51.5 Encounter for palliative care; Z66 Do not resuscitate; I69.354 Hemiplegia and hemiparesis following cerebral infarction affecting left non-dominant side; I69.322 Dysarthria following cerebral infarction; I69.320 Aphasia following cerebral infarction; S72.451 Displaced supracondylar fracture without intracondylar extension of lower end of right femur; I10 Essential (primary) hypertension; K21.9 Gastro-esophageal reflux disease without esophagitis; R13.10 Dysphagia, unspecified; L89.891 Pressure ulcer of other site, stage 1; L89.610 Pressure ulcer of right heel, unstageable; F32.9 Major depressive disorder, single episode, unspecified; F41.9 Anxiety disorder, unspecified; H26.9 Unspecified cataract; M19.90 Unspecified osteoarthritis, unspecified site; M25.561 Pain in right knee; R00.0 Tachycardia, unspecified; R41.82 Altered mental status, unspecified; E66.9 Obesity, unspecified; Z68.31 Body mass index [BMI] 31.0-31.9, adult; Z74.01 Bed confinement status; Z79.01 Long term (current) use of anticoagulants; Z91.81 History of falling; Z95.2 Presence of prosthetic heart valve; Z96.642 Presence of left artificial hip joint; Z96.652 Presence of left artificial knee joint
CPT/HCPCS: 36600; 70450; 71045; 71275; 73552; 74230; 80047; 80048; 80053; 80202; 81003; 82803; 83605; 83735; 83880; 84100; 84145 90; 84484; 85025; 85027; 85610; 85730; 86141; 87040; 87086; 87493; 87502; 87641; 92610 GN; 92611 GN; 93005; 93306; 94640; 94640 76; 94760; 94799; 99202; 99281; 99285; C1755; J0456; J0692; J1160; J1170; J1940; J2405; J2543; J3370; J3475; J7030; J7050; J7120; J7512